=== PATIENT | male | born 1945 | race Caucasian/White ===

== ENCOUNTER 2017-04-18 17:13 | Emergency (ER) | payer MEDICARE, MEDICAID, SELFPAY | END 2017-04-18 20:11 | disposition left against medical advice (07) | PROVIDERS: Emergency Provider Emergency Medicine; Family Provider Nurse Practitioner Family; Visit Provider Emergency Medicine | DX: Z53.21 Procedure and treatment not carried out due to patient leaving prior to being seen by health care provider (principal); R05 Cough; R50.9 Fever, unspecified; R07.1 Chest pain on breathing | CPT/HCPCS: 71020; 80053; 83605; 85025; 87040; 99211; 99283 ==

== ENCOUNTER → 2017-11-02 12:29 | Outpatient (CLI) | payer MEDICARE, MEDICAID, SELFPAY ==
--- NOTE | 2017-11-02 12:32 | US_ITS ---
US Arterial Ankle Brachial Ind History: Rest pain, claudication, leg pain, discoloration, current smoker ORDERING PHYSICIAN: Lavonne Wilson PATIENT AGE: 71 years TECHNIQUE: Segmental pressures obtained of both right and left leg. These are compared to brachial blood pressure to yield index at each level sampled including summary ANDREW. The data sheets from the procedure are available in PACS FINDINGS Rest study only performed today No prior studies available for comparison. Blood pressures reported are in millimeters mercury. RIGHT LEG ANDREW = 1.1. RIGHT LEG TBI=.7 Brachial BP: 110 Thigh BP: 103 Calf BP: 126 Ankle PT: 124 Ankle DP : 88 Digit =77 LEFT LEG ANDREW = 1.1 LEFT LEG TBI= .6 Brachial BPD: 102 Thigh BP: 108 Calf BP: 99 Ankle PT:119 Ankle DP: 89 Digit = 69 Pulses and waveforms: Diminished pulses greater on the left, diminished waveforms IMPRESSION: The ABIs as reported above are within normal limits. The waveforms and pulses are somewhat diminished. The TBI is slightly low on the left suggesting small vessel disease
== END ==
PROVIDERS: PCP Nurse Practitioner Family; Visit Provider Nurse Practitioner Family
DX: M79.605 Pain in left leg (principal); M79.604 Pain in right leg; L81.9 Disorder of pigmentation, unspecified; I73.9 Peripheral vascular disease, unspecified
CPT/HCPCS: 93922

== ENCOUNTER → 2017-11-29 08:51 | Outpatient (CLI) | payer MEDICARE, MEDICAID, SELFPAY ==
[2017-11-29 09:37] LABS: Blood Urea Nitrogen 27 mg/dL (7-18); Creatinine,Serum 1.51 mg/dL (0.70-1.30); Estimated Glomerular Filt Rate 46 ml/min (>60); GFR (African American) 56 ML/MIN (>60)
== END ==
PROVIDERS: Family Provider Nurse Practitioner Family; PCP Nurse Practitioner Family; Visit Provider Nurse Practitioner Family
DX: I70.213 Atherosclerosis of native arteries of extremities with intermittent claudication, bilateral legs (principal)
CPT/HCPCS: 36415; 82565; 84520

== ENCOUNTER → 2017-12-08 12:07 | Outpatient (CLI) | payer MEDICARE, MEDICAID, SELFPAY ==
--- NOTE | 2017-12-08 12:10 | NM_ITS ---
History and Indications: Hypertension, tobacco use, family history, chest pain and shortness of breath Procedure: Patient received a 0.4 mg of Lexiscan, resting heart rate was 63 bpm blood pressure 130/74, with Lexiscan maximum heart rate achieved was 92 bpm is less than 85% of the maximum] heart rate and a blood pressure was 106/54. With Lexiscan patient complained of shortness of breath and nausea. Electrocardiogram: Resting electrocardiogram showed sinus rhythm, with Lexiscan there is less than 1.[address] segment depression noted from the baseline EKG. The EKG portion of the Lexiscan Myoview is nondiagnostic. Cardiac stress and resting SPECT images: Cardiac stress and rest SPECT images were obtained using technetium 99 Myoview 31.0 mCi at stress and 9.7 mCi at rest. Gated SPECT further analysis of segmental wall motion and calculation of the ejection fraction also done. Cardiac stress and rest images show reversible ischemia involving the anteroapical and apical wall, computer derived ejection fraction is 62% with no obvious regional wall motion abnormality, right ventricle is normal size and contractility. Conclusion: 1. The EKG portion of the Lexiscan Myoview is nondiagnostic. 2. Scintigraphic evidence of mild reversible ischemia involving the anteroapical and apical wall, computer derived ejection fraction is 62% with no obvious regional wall motion abnormality, right ventricle is normal size and contractility. 3. Abnormal Lexiscan Myoview study.
--- NOTE | 2017-12-08 12:10 | CA_ITS ---
PROCEDURE: 2-D M-mode and color Doppler study INDICATIONS FOR THE TEST: Chest pain + COPD+ Heart Murmur Tobacco Smoking+ Palpitations Fatigue Syncope Edema Hypertension+Diabetes Mellitus Rheumatic Fever SOB+PICHARDO Obesity Hyperlipidemia Family History HD Additional History PATIENT INFORMATION HEIGHT: 68 WEIGHT:197 GENDER: Male B/P:117/70 2-D/M-MODE INTERPRETATION: 2-D MEASUREMENTS OBSERVED VALUES IN CMS Right Ventricular Dimension (RVDd) 2.5 Interventricular Septum (Thickness)(IVsd) 1.4 Left Ventricular Internal Dimensions(LVIDd) 3.8 Left Ventricular Posterior Wall (Thickness)(LVPWd) 1.4 Aortic Root 3.2 Aortic Cusp Separation 2.2 Left Atrial Dimensions (LAD) 4.0 2D 1. Left atrium is mildly enlarged, left ventricle is normal size, mild concentric left ventricular hypertrophy, visually estimated ejection fraction 55% with no obvious regional wall motion abnormality. 2. The right atrium and right ventricle are normal size and contractility. 3. The aortic valve is minimally thickened and fibrosed. 4. The mitral and tricuspid valve are grossly normal. 5. The pulmonic valve is poorly visualized. 6. No significant pericardial effusion noted. DOPPLER INTERROGATION: Doppler interrogation of the aortic, mitral and tricuspid valvular presence of mild mitral and tricuspid regurgitation, tricuspid regurgitation jet velocity is insufficient for calculation of the right ventricular systolic pressure, grade 1 diastolic dysfunction seen with tissue Doppler evidence of raised left atrial pressure. CONCLUSION: 1. Mildly enlarged left atrium, normal left ventricular size, mild concentric left ventricular hypertrophy, visually estimated ejection fraction 55% with no obvious regional wall motion abnormality, grade 1 diastolic dysfunction seen with tissue Doppler evidence of raised left atrial pressure. 2. Mild mitral and tricuspid regurgitation 3. No significant pericardial effusion noted.
--- NOTE | 2017-12-08 15:00 | HMH.ITSHM ---
levetiracetam umeclidinium bromide tolterodine potassium pantoprazole lisinopril' furosemide citaLOPRAM
== END ==
PROVIDERS: Family Provider Nurse Practitioner Family; PCP Nurse Practitioner Family; Visit Provider Internal Medicine
DX: R60.9 Edema, unspecified (principal); I73.9 Peripheral vascular disease, unspecified; R07.9 Chest pain, unspecified; R06.02 Shortness of breath
CPT/HCPCS: 78452; 93017; 93306; A9502; J2785

== ENCOUNTER → 2019-01-12 11:59 | Outpatient (CLI) | payer MEDICARE, MEDICAID, SELFPAY ==
--- NOTE | 2019-01-12 12:03 | XR_ITS ---
PROCEDURE: XR CHEST 2V CLINICAL HISTORY: COPD Congestion, cough, COPD, smoker COMPARISON: CXR CHEST(2 VIEWS-NOT PORTABLE) from 11/24/2016 CXR CHEST(2 VIEWS-NOT PORTABLE) from 03/21/2017 CXR CHEST(2 VIEWS-NOT PORTABLE) from 04/18/2017 FINDINGS: The cardiomediastinal silhouette and pulmonary vascularity are within normal limits. Hyperinflation. Mild atelectatic or fibrotic change in the left lung base. No lobar consolidation or collapse. No acute bony abnormalities. IMPRESSION: COPD with mild left basilar atelectasis or fibrosis Dictated by: Arcadio Fall MD 01/12/2019 12:54 Electronically signed by Arcadio Fall MD in [place] 01/12/2019 12:54
== END ==
PROVIDERS: PCP Nurse Practitioner Family; Visit Provider Nurse Practitioner Family
DX: J44.9 Chronic obstructive pulmonary disease, unspecified (principal)
CPT/HCPCS: 71046

== ENCOUNTER 2019-02-13 14:30 | Outpatient (RCR) | payer MEDICARE, MEDICAID, SELFPAY | END 2019-02-13 14:35 | disposition home or self-care (01) | LOC: PT 14:30 | PROVIDERS: PCP Nurse Practitioner Family; Visit Provider Nurse Practitioner | DX: R27.0 Ataxia, unspecified (principal); R53.1 Weakness | CPT/HCPCS: 97110; 97163 ==